=== PATIENT | male | born 1990 | race Caucasian/White ===

== ENCOUNTER 2020-01-26 09:53 | Emergency (ER) | payer BC, SELFPAY ==
[2020-01-26 10:22] VITALS: BP 144/87; PULSE 64; RESP 16; TEMP 36.9; O2SAT 99
[2020-01-26 10:45] LABS: Basophils Absolute Auto 0.1 K/mm3 (0.0-0.1); Basophils Percent Auto 0.8 % (0.2-1.2); Eosinophils Absolute Auto 0.1 K/mm3 (0-0.3); Eosinophils Percent Auto 1.4 % (0-4.4); Hematocrit 43.4 % (42.0-52.0); Hemoglobin 15.1 g/dL (14.0-18.0); Immature Granulocyte Absolute 0.02 K/mm3 (0.00-0.031); Immature Granulocyte Percent A 0.3 % (0-0.5); Lymphocytes Absolute Auto 1.38 K/mm3 (0.9-3.2); Mean Corpuscular HGB Conc 34.8 g/dl (32-36); Mean Corpuscular Hemoglobin 30.7 pg (26-34); Mean Corpuscular Volume 88.2 fl (80-100); Mean Platelet Volume 10.5 fl (7.4-10.4); Monocytes Absolute Auto 0.7 K/mm3 (0.1-0.6); Monocytes Percent Auto 9.2 % (2.6-8.5); Neutrophils Percent Auto 69.3 % (45.5-73.1); Platelet Count Result 313 k/mm3 (150-375); Red Blood Count 4.92 M/mm3 (4.6-6.20); Red Cell Distribution Width 13.1 % (11.5-14.5); White Blood Count 7.3 K/mm3 (4.5-10.0)
[2020-01-26 10:51] LABS: Add Urine Microscopic? NO; Appearance Urine Clear (Clear); Bilirubin Urine Negative (Negative); Blood Urine Negative (Negative); Color Urine Yellow (Yellow); Glucose Urine UA Negative (Negative); Ketones Urine Negative (Negative); Leukocyte Esterase Ur Negative LEU/UL (Negative); Nitrate Urine Negative (Negative); Protein Urine Negative (Negative); Specific Grav Ur 1.014 (1.001-1.035); Urobilinogen Urine Negative mg/dL (<2.0)
[2020-01-26 10:56] LABS: Potassium 4.2 mmol/L (3.4-5.0)
[2020-01-26 10:59] LABS: Alanine Aminotransferase 47 U/L (4-50); Albumin Level 4.4 g/dL (3.5-5.1); Alkaline Phosphatase 48 U/L (38-126); Anion Gap 9 mmol/L (8-16); Aspartate Amino Transferase 37 U/L (17-59); Bilirubin,Total 0.4 mg/dL (0.2-1.3); Blood Urea Nitrogen 16 mg/dL (9-20); Calcium 9.5 mg/dL (8.4-10.2); Carbon Dioxide 25 mmol/L (22-30); Chloride 104 mmol/L (98-107); Estimated CRCL calculation 119 ml/min; Estimated Glomerular Filt Rate > 60; Glucose 102 mg/dL (75-110); Lipase 276 U/L (23-300); Sodium 138 mmol/L (137-145)
--- NOTE | 2020-01-26 11:28 | ED.ABDPAIN ---
HPI - Abdominal Pain General Chief Complaint: Abdominal Pain Stated Complaint: abd pain Time Seen by Provider: 01/26/20 11:28 Source: patient Mode of arrival: ambulatory Limitations: no limitations History of Present Illness HPI narrative: Patient is a 29-year-old healthy male who presents for evaluation of left-sided abdominal pain. Patient states he noticed the left-sided abdominal pain which is dull, aching in nature over the past 3 hours. Pain is mild, aching, and does not radiate to the patient's flank, and he denies testicle or penile pain. No hematuria or dysuria. Patient denies recent injury or fall. No fever, chills, nausea or vomiting. No diarrhea or constipation. Patient with history of umbilical hernia surgical repair, but states this pain feels different. He has no history of kidney stones. No rashes. No recent sick contacts. No weakness, myalgias, chest pain or shortness of breath. Related Data Home Medications Medication Instructions Recorded Confirmed fluticasone propionate [Flonase 1 spray INTRANASAL DAILY 01/26/20 Allergy Relief] Allergies Allergy/AdvReac Type Severity Reaction Status Date / Time amoxicillin Allergy Hives Verified 01/26/20 10:26 Review of Systems Review of Systems: Narrative: CONSTITUTIONAL: Denies fever, chills, or sweats. CARDIOVASCULAR: Denies chest pain, palpitations, or edema. RESPIRATORY: Denies cough or dyspnea. GASTROINTESTINAL: Reports left-sided abdominal pain, denies nausea, vomiting or diarrhea GENITOURINARY: Denies dysuria or hematuria. SKIN: Denies rash or itching. MUSCULOSKELETAL: Denies back pain, joint pain, or myalgia. NEUROLOGIC: Denies headache, numbness, or weakness. [facility] Past Medical History Medical History (Updated 01/26/20 @ 11:59 by Erica Ames MD) No pertinent past medical history Surgical History Surgical History (Updated 01/26/20 @ 11:59 by Erica Ames MD) H/O umbilical hernia repair Social History Social History (Updated 01/26/20 @ 11:59 by Erica Ames MD) Smoking status: Never smoker Substance use: never Gender identity (if verbalized by the patient): Male Exam Narrative: Exam Narrative: GENERAL: Awake, alert, conversant HEAD: Normocephalic, atraumatic. EYES: PERRLA and EOMI. ENT: Nares clear, no rhinorrhea or epistaxis. Mucous membranes moist. NECK: Supple. CHEST: No respiratory distress, breathing even and non labored HEART: Regular rate, sinus rhythm ABDOMEN:Non distended, non tender, I cannot reproduce the left lower quadrant tenderness, no right lower quadrant tenderness, no epigastric or right upper quadrant tenderness. No rebound, no rigidity, no peritoneal signs. No flank tenderness. No ecchymoses or vesicular rash. EXTREMITIES: Normal range of motion. No edema. SKIN: Warm, dry, no rash. NEURO:No focal deficits. Alert and oriented x3 Course Vital Signs Vital signs: Vital Signs Temperature 36.9 C 01/26/20 10:22 Pulse Rate 64 01/26/20 10:22 Respiratory Rate 16 01/26/20 10:22 Blood Pressure 144/87 H 01/26/20 10:22 Pulse Oximetry 99 01/26/20 10:22 Temperature 36.9 C 01/26/20 10:22 Pulse Rate 64 01/26/20 10:22 Respiratory Rate 16 01/26/20 10:22 Blood Pressure 144/87 H 01/26/20 10:22 Pulse Oximetry 99 01/26/20 10:22 MDM - Abdominal Pain MDM Narrative Medical decision making narrative: Patient presented for evaluation of left-sided abdominal pain. Patient without other systemic symptoms. Patient is afebrile, no nausea or vomiting, no severe type of pain. In fact, patient has no tenderness on abdominal exam. No flank tenderness. Patient's abdominal exam is very benign without peritoneal signs. IV access obtained and labs were drawn. Laboratory results are reassuring. No leukocytosis. No acute kidney injury. No elevation in lipase. No signs of urinary tract infection based on urinalysis, and there is no hematuria to suggest a nephrolithiasis.
[2020-01-26 12:00] VITALS: BP 134/80; PULSE 68; RESP 17; O2SAT 99
== END 2020-01-26 12:00 | disposition home or self-care (01) ==
PROVIDERS: Emergency Provider Emergency Medicine
DX: R10.9 Unspecified abdominal pain (principal)
CPT/HCPCS: 36415; 80053; 81003; 83690; 85025; 99283